=== PATIENT | female | born 1950 | race Caucasian/White ===

== ENCOUNTER → 2016-04-18 | Outpatient (CLI) | payer OTHER ==
[~2016-04-18] MED LIST: ALBU1AER9 INH; LORA10CA2 PO; OMEP20CA9 PO; PRED10TA PO; SNG10 PO; SYMIN160 PO
--- NOTE | 2016-04-18 14:00 | MAMMOGRAPHY REPORT ---
BILATERAL DIGITAL SCREENING MAMMOGRAM WITH CAD: 04/18/2016 CLINICAL HISTORY: Routine screening. Patient has no complaints. TECHNIQUE: Bilateral CC and MLO views were obtained. Current study was also evaluated with a Comput er Aided Detection (CAD) system. COMPARISON: Comparison is made to exams dated: 04/16/2015 mammogram, 04/08/2013 mammogram, 04/14/2014 ma mmogram, 04/03/2012 mammogram, 03/29/2011 mammogram, and 03/25/2010 mammogram - [facility] enter. BREAST COMPOSITION: There are scattered areas of fibroglandular density in both breasts. FINDINGS: The parenchymal pattern is similar to prior mammograms. No suspicious mass, architectural distortion or cluster of microcalcifications is seen. IMPRESSION: ACR BI-RADS CATEGORY 1: NEGATIVE There is no mammographic evidence of malignancy. A 1 year screening mammogram is recommended. The p atient will receive written notification of the results. Approximately 10% of breast cancers are not detected with mammography. A negative mammographic repor t should not delay biopsy if a clinically suggestive mass is present. Kathy Ellsworth M.D. ay/:04/18/2016 12:22:31 Instructional Services Specialist: Cass GILL(R)(M), [facility] letter sent: Normal 1/2 BI-RADS Code: ACR BI-RADS Category 1: Negative
== END | disposition home or self-care (01) ==
LOC: C.MAMM 10:40
PROVIDERS: ATTEND Internal Medicine
DX: Z12.31 Encounter for screening mammogram for malignant neoplasm of breast (principal)

== ENCOUNTER → 2016-06-08 | Outpatient (CLI) | payer OTHER ==
[~2016-06-08] MED LIST changes: +CHOL1000 PO; +FEXO1TAB58 PO; +MONT1TAB3 PO; +MULTTAB58 PO; +OMEP20TA14 PO; +PRM625 PO; +VNTHFA/IN INH
[2016-06-08 18:01] LABS: BLOOD UREA NITROGEN 11 mg/dl (7-18); BUN/CREATININE RATIO 16.8 (10-20); CALCIUM 8.7 mg/dl (8.5-10.1); CARBON DIOXIDE 25 mmol/L (21-32); CHLORIDE 107 mmol/L (98-107); CHOLESTEROL 185 mg/dl (0-200); CREATININE 0.67 mg/dl (0.60-1.20); GLUCOSE 89 mg/dl (70-99); POTASSIUM 4.2 mmol/L (3.5-5.1); SODIUM 141 mmol/L (136-145)
[2016-06-08 18:13] LABS: ALB/GLOB RATIO 1.2 (0.9-2); ALKALINE PHOSPHATASE 61 U/L (45-117); ALT/SGPT 34 U/L (12-78); AST/SGOT 19 U/L (15-37); HDL CHOLESTEROL 93 mg/dl; LDL CHOLESTEROL CALCULATED 74 mg/dl; THYROID STIMULATING HORMONE 0.556 uIu/ml (0.300-4.500); TRIGLYCERIDES 88 mg/dl (0-150); VERY LOW DENSITY LIPOPROT CALC 18 mg/dl
== END | disposition home or self-care (01) ==
LOC: C.LABBFT 11:45
PROVIDERS: ATTEND Internal Medicine
DX: Z00.00 Encounter for general adult medical examination without abnormal findings (principal); Z13.29 Encounter for screening for other suspected endocrine disorder; E88.09 Other disorders of plasma-protein metabolism, not elsewhere classified; E78.5 Hyperlipidemia, unspecified

== ENCOUNTER → 2017-01-12 | Day surgery (SDC) | payer OTHER, MEDICARE ==
[2017-01-02 10:51] VITALS: BMI 22.0
[~2017-01-12] VITALS: Ht 152.4 cm; Wt 50.9 kg
[~2017-01-12] MED LIST changes: -ALBU1AER9 INH; +LIDOCAINE HCL 2% 2 ML VIAL (20MG/ML) ONE; -LORA10CA2 PO; -OMEP20CA9 PO; -PRED10TA PO; +PROPOFOL IV EMULSION 10 MG/ML 20 ML VIAL IV ONE; -SNG10 PO; +SODIUM CHLORIDE 0.9% 500ML 500 ML IV ONE
[2017-01-12 12:35] VITALS: Ht 152.4 cm; Wt 50.9 kg
--- NOTE | 2017-01-12 13:01 | Endo History and Physical ---
History & Physical Date of Service: Jan 12, 2017. Chief Complaint: Screening Referring Physician: Dr. Abigail Tovar History of Present Illness 66 yo CF who presents for screening colonoscopy. Past Surgical History Hx Cardiac Surgery: No Hx Internal Defibrillator: No Hx Pacemaker: No Hx Abdominal Surgery: Yes (CARLOS A BSO, D&C) Hx of Implantable Prosthesis: No Hx Post-Op Nausea and Vomiting: No Hx Cancer Surgery: No Hx Thoracic Surgery: No Hx Orthopedic: Yes (LT/RT HAND SURGERY) Hx Urinary Tract Surgery: No Family History None Social History Smoking Status: Former Smoker Hx Substance Use: No Hx Alcohol Use: Yes (1 GLASS WINE/DAY) Allergies Coded Allergies: No Known Allergies (Verified , 01/02/17) Current Medications Reported Home Medications Medications Dose Route/Sig Max Daily Dose Days Date Category Ventolin Hfa (Albuterol) 200 Puffs/50642 Mcg Aers 2-4 Puffs INH Q6H PRN 01/02/17 Reported Vitamin D3 (Cholecalciferol) 1,000 Unit Tab 1 Tab PO DAILY 01/02/17 Reported Multivitamin (Multiple Vitamin) 1 Tab Tab 1 Tab PO DAILY 01/02/17 Reported Prilosec Otc (Omeprazole Magnesium) 20 Mg Tab 20 Mg PO QAM 01/02/17 Reported Singulair (Montelukast Sodium) 10 Mg Tab 10 Mg PO HS 01/02/17 Reported Gail-D 24 Hour Allergy (Fexofenadine-Pseudoephedrine) 1 Tab Tab 1 Tab PO QAM 01/02/17 Reported Premarin (Estrogens Conjugated) 0.625 Mg Tab 0.625 Mg PO QAM 01/02/17 Reported Symbicort 160/4.5 Inhaler (Budesonide/Formoterol Fumarate) 120 Puffs/ Aero 2 Puffs PO BID 03/02/14 Reported Vital Signs Weight (Kilograms): 50.91 Height (Feet): 5 Height (Inches): 0 Physical Exam General Appearance: WD/WN, no apparent distress Respiratory/Chest: Auscultation: breath sounds normal Cardiovascular: Heart Auscultation: RRR Abdomen: Bowel Sounds: normal Inspection & Palpation: soft, non-distended, no tenderness, guarding & rebound Assessment and Plan Assessment: 66 yo CF who presents for screening colonoscopy. Plan: Proceed with colonoscopy.
--- NOTE | 2017-01-12 14:06 | Discharge Instructions ---
Endoscopy Patient Instructions Date / Procedure(s) Performed Jan 12, 2017. Colonoscopy Allergy Information Coded Allergies: No Known Allergies (Verified , 01/02/17) Discharge Date / Findings Jan 12, 2017. Internal hemorrhoids Medication Instructions Stopped Medication(s): Gail stopped, see medications OK to resume all medications today as prescribed Reported Home Medications Medications Dose Route/Sig Max Daily Dose Days Date Category Ventolin Hfa (Albuterol) 200 Puffs/39777 Mcg Aers 2-4 Puffs INH Q6H PRN 01/02/17 Reported Vitamin D3 (Cholecalciferol) 1,000 Unit Tab 1 Tab PO DAILY 01/02/17 Reported Multivitamin (Multiple Vitamin) 1 Tab Tab 1 Tab PO DAILY 01/02/17 Reported Prilosec Otc (Omeprazole Magnesium) 20 Mg Tab 20 Mg PO QAM 01/02/17 Reported Singulair (Montelukast Sodium) 10 Mg Tab 10 Mg PO HS 01/02/17 Reported Gail-D 24 Hour Allergy (Fexofenadine-Pseudoephedrine) 1 Tab Tab 1 Tab PO QAM 01/02/17 Reported Premarin (Estrogens Conjugated) 0.625 Mg Tab 0.625 Mg PO QAM 01/02/17 Reported Symbicort 160/4.5 Inhaler (Budesonide/Formoterol Fumarate) 120 Puffs/ Aero 2 Puffs PO BID 03/02/14 Reported Provider Instructions Activity Restrictions - No exercising or heavy lifting for 24 hours. - Do not drink alcohol the day of the procedure. - Do not drive a car or operate machinery until the day after the procedure. - Do not make any important decisions or sign important papers in 24 hours after the procedure. Following Day: - Return to full activity which may include returning to work/school. Diet Start your diet with liquids and light foods (jello, soup, juice, toast). Then eat your usual diet if not nauseated. Treatment For Common After Affects For mild abdominal pain, bloating, or excessive gas: - Rest - Eat lightly - Lie on right side Follow-Up Information Follow-up with Dr. Abigail Tovar as scheduled Anesthesia Information What You Should Know You have had a procedure that required some medicine to reduce anxiety and discomfort. This treatment is called moderate sedation. After receiving the treatment, you may be sleepy, but you will be able to breathe on your own. The effects of the treatment may last for several hours. Follow these instructions along with Activity/Diet recommendations noted above: * Do NOT do anything where dizziness or clumsiness would be dangerous. * Rest quietly at home today, then you can be up and about tomorrow. * Have a responsible person stay with you the rest of today. * You may have had an I.V. today. If so, you may take the dressing off later today. Recommendations Call your doctor if: * Trouble breathing * Continuous vomiting for more than 24 hours * Temperature above 101 degrees * Severe abdominal pain or bloating * Pain not relieved by pain medicine ordered * There is increased drainage or redness from any incision * A large amount of rectal bleeding greater than 2-3 tablespoons. (If you had a polyp/s removed or have hemorrhoids, a small amount of blood - from the rectum is to be expected.) * You have any unanswered questions or concerns. IN THE EVENT OF A SERIOUS EMERGENCY, GO TO THE NEAREST EMERGENCY ROOM Your discharge instructions were prepared by provider Les Orourke. Patient Instructions Signature Page Josi Kt Patient (or Guardian) Signature/Date: I have read and understand the instructions given to me by my caregivers. Caregiver/RN/Doctor Signature/Date: The above-named patient and/or guardian has received patient instructions on this date. + Original Patient Signature Page (only) stays with chart. Please make copy for patient.
--- NOTE | 2017-01-12 14:08 | GI REPORT ---
Procedure Date: 01/12/2017 1:27 PM Procedure: Colonoscopy Indications: Screening for colorectal malignant neoplasm Medicines: Monitored Anesthesia Care Complications: No immediate complications. Estimated Blood Loss: Estimated blood loss: none. Procedure: Pre-Anesthesia Assessment: - Prior to the procedure, a History and Physical was performed, and patient medications and allergies were reviewed. The patient's tolerance of previous anesthesia was also reviewed. The risks and benefits of the procedure and the sedation options and risks were discussed with the patient. All questions were answered, and informed consent was obtained. Prior Anticoagulants: The patient has taken no previous anticoagulant or antiplatelet agents. ASA Grade Assessment: II - A patient with mild systemic disease. After reviewing the risks and benefits, the patient was deemed in satisfactory condition to undergo the procedure. After I obtained informed consent, the scope was passed under direct vision. Throughout the procedure, the patient's blood pressure, pulse, and oxygen saturations were monitored continuously. The scope was introduced through the anus and advanced to the terminal ileum. The colonoscopy was performed without difficulty. The patient tolerated the procedure well. The quality of the bowel preparation was good. The terminal ileum, ileocecal valve, appendiceal orifice, and rectum were photographed. Findings: The perianal and digital rectal examinations were normal. Non-bleeding internal hemorrhoids were found during retroflexion. The hemorrhoids were small. Impression: - Non-bleeding internal hemorrhoids. - No specimens collected. Recommendation: - Resume previous diet. - Continue present medications. - Repeat colonoscopy in 10 years for surveillance. - Return to primary care physician as previously scheduled. Les Orourke DO 01/12/2017 2:08:21 PM This report has been signed electronically. Note Initiated On: 01/12/2017 1:27 PM I attest to the content of the Intraoperative Record and orders documented therein, exceptions below
[2017-01-12 14:29] VITALS: BP 174/94; PULSE 78; O2SAT 98
--- NOTE | 2017-01-12 14:43 | Anesthesiology Progress Note ---
Anesthesia Post Op Note Date & Time Jan 12, 2017 at 14:43 Vital Signs Pain Intensity: 0 Vital Signs Past 12 Hours Date Time Temp Pulse Resp B/P (MAP) Pulse Ox O2 Delivery O2 Flow Rate FiO2 01/12/17 14:29 78 18 174/94 (120) 98 Room Air 01/12/17 14:14 79 18 150/87 (108) 98 Room Air 01/12/17 13:59 92 18 144/92 (109) 100 Room Air 01/12/17 13:00 36.5 84 16 195/102 (133) 98 Room Air Notes Mental Status: alert / awake / arousable, participated in evaluation Pt Amnestic to Procedure: Yes Nausea / Vomiting: adequately controlled Pain: adequately controlled Airway Patency, RR, SpO2: stable & adequate BP & HR: stable & adequate Hydration State: stable & adequate Anesthetic Complications: no major complications apparent
== END | disposition home or self-care (01) ==
LOC: C.GI 12:29
PROVIDERS: ATTEND Internal Medicine
DX: Z12.11 Encounter for screening for malignant neoplasm of colon (principal); K64.8 Other hemorrhoids; K21.9 Gastro-esophageal reflux disease without esophagitis; Z90.710 Acquired absence of both cervix and uterus; Z90.722 Acquired absence of ovaries, bilateral; Z90.79 Acquired absence of other genital organ(s); Z87.891 Personal history of nicotine dependence

== ENCOUNTER → 2017-01-26 | Outpatient (CLI) | payer OTHER, MEDICARE ==
[~2017-01-26] MED LIST changes: -LIDOCAINE HCL 2% 2 ML VIAL (20MG/ML) ONE; -PROPOFOL IV EMULSION 10 MG/ML 20 ML VIAL IV ONE; -SODIUM CHLORIDE 0.9% 500ML 500 ML IV ONE
== END | disposition home or self-care (01) ==
LOC: C.MAMM 10:41
PROVIDERS: ATTEND Internal Medicine
DX: Z00.00 Encounter for general adult medical examination without abnormal findings (principal); Z51.81 Encounter for therapeutic drug level monitoring; Z79.890 Hormone replacement therapy; M81.0 Age-related osteoporosis without current pathological fracture

== ENCOUNTER → 2017-05-02 | Outpatient (CLI) | payer OTHER ==
--- NOTE | 2017-05-04 07:48 | MAMMOGRAPHY REPORT ---
BILATERAL DIGITAL SCREENING MAMMOGRAM TOMOSYNTHESIS WITH CAD: 05/02/2017 CLINICAL HISTORY: Routine screening. Patient has no complaints. TECHNIQUE: Breast tomosynthesis in addition to standard 2D mammography was performed. Current study was also evaluated with a Computer Aided Detection (CAD) system. COMPARISON: Comparison is made to exams dated: 04/18/2016 mammogram, 04/16/2015 mammogram, 04/14/2014 ma mmogram, 04/08/2013 mammogram, 03/29/2011 mammogram, and 03/25/2010 mammogram - [facility]. BREAST COMPOSITION: There are scattered areas of fibroglandular density in both breasts. FINDINGS: The glandular pattern is similar to prior mammograms. No suspicious mass, architectural di stortion or cluster of microcalcifications is seen. IMPRESSION: ACR BI-RADS CATEGORY 1: NEGATIVE There is no mammographic evidence of malignancy. A 1 year screening mammogram is recommended. The pa tient will receive written notification of the results. Approximately 10% of breast cancers are not detected with mammography. A negative mammographic report should not delay biopsy if a clinically suggestive mass is present. Kathy Ellsworth M.D. ay/:05/02/2017 16:16:36 Implementation Technician: Annette GILL(Marybeth)(T[place]), [facility] [address] letter sent: Normal 1/2 BI-RADS Code: ACR BI-RADS Category 1: Negative
== END | disposition home or self-care (01) ==
LOC: C.MAMM 10:56
PROVIDERS: ATTEND Internal Medicine
DX: Z12.31 Encounter for screening mammogram for malignant neoplasm of breast (principal)

== ENCOUNTER → 2017-06-20 | Outpatient (CLI) | payer OTHER, MEDICARE ==
[2017-06-20 13:39] LABS: HEMOGLOBIN A1C 5.6 % (4.5-5.6)
[2017-06-20 15:02] LABS: ALBUMIN 3.1 gm/dl (3.4-5.0); ALT/SGPT 33 U/L (12-78); AST/SGOT 21 U/L (15-37); BLOOD UREA NITROGEN 16 mg/dl (7-18); CALCIUM 7.8 mg/dl (8.5-10.1); CARBON DIOXIDE 30 mmol/L (21-32); CHOLESTEROL 186 mg/dl (0-200); CREATININE 0.67 mg/dl (0.60-1.20); GLUCOSE 83 mg/dl (70-99); POTASSIUM 3.8 mmol/L (3.5-5.1); SODIUM 140 mmol/L (136-145)
[2017-06-20 15:06] LABS: ALKALINE PHOSPHATASE 46 U/L (45-117); LDL CHOLESTEROL CALCULATED 72 mg/dl; TOTAL PROTEIN 5.8 gm/dl (6.4-8.2)
== END | disposition home or self-care (01) ==
LOC: C.LABBFT 08:58
PROVIDERS: ATTEND Internal Medicine
DX: Z00.00 Encounter for general adult medical examination without abnormal findings (principal); R73.01 Impaired fasting glucose; E78.5 Hyperlipidemia, unspecified